=== PATIENT | male | born 1990 | race Two or more races ===

== ENCOUNTER 2018-06-02 21:49 | Emergency (ER) | payer SELFPAY ==
[~2018-06-02] VITALS: Ht 175.3 cm; Wt 81.6 kg
[2018-06-02] MEDS ORDERED: NKM (22:12)
[2018-06-02 22:30] VITALS: BP 136/89
[2018-06-02] MEDS ORDERED: Norco 5mg/325mg tab PO ONE (22:30)
--- NOTE | 2018-06-02 22:30 | NUR ---
ED Nurse Note: Patient walk in with father c/o right elbow deformity for 1x hour. Patient states he fell while playing basketball. Patient reports 6/10 pain. Patient AOx4, VSS, ambulatory with steady gait, no s/s of acute distress noted at this time. Patient seen by ERMD at bedside.
--- NOTE | 2018-06-02 22:55 | Diagnostic Imaging Report ---
EXAM: XR Right Elbow Complete, 3 or More Views CLINICAL HISTORY: PAIN TECHNIQUE: Frontal, lateral and oblique views of the right elbow. COMPARISON: No relevant prior studies available. FINDINGS: Bones/joints: Posterior elbow dislocation. Coronoid process and radial head fractures. Soft tissues: Unremarkable. IMPRESSION: 1. Posterior elbow dislocation. 2. Coronoid process and radial head fractures.
[2018-06-02] MEDS ORDERED: Lidocaine 1% Plain 30 ml INJ ONE (23:15)
--- NOTE | 2018-06-03 00:30 | NUR ---
ED Nurse Note: patients arm put in a splint and a sling.
[2018-06-03] MEDS ORDERED: NORCO 5-325 TA1 EACH ORAL (00:41)
[2018-06-03] MEDS ORDERED: IBUPROFEN600 MG ORAL (00:41)
--- NOTE | 2018-06-03 00:55 | Diagnostic Imaging Report ---
EXAM: XR Right Elbow Complete, 3 or More Views CLINICAL HISTORY: PAIN TECHNIQUE: Frontal, lateral and oblique views of the right elbow. COMPARISON: 06/03/2018 FINDINGS: Bones/joints: Successful interval reduction of previously seen elbow dislocation. Coronoid process and radial head fractures. Soft tissues: Unremarkable. IMPRESSION: Successful interval reduction of previously seen elbow dislocation.
[2018-06-03 01:00] VITALS: BP 136/89
--- NOTE | 2018-06-03 01:00 | NUR ---
ED Nurse Note: Patient cleared for discharge by ERMMart. Patient AOx4, VSS, ambulatory with steady gait, no s/s of acute distress noted at this time. patient provided with discharge instructions and medication prescriptions. patient verbalized understanding. Patient ID band removed. patient took all personal belongings with him. Patient has father at bedside to take him home. patient instructed to follow up with PCP in 3x days.
--- NOTE | 2018-06-03 01:57 | Emergency Room Report ---
History of Present Illness General Chief Complaint: Upper Extremity Injury Source: Patient Present Illness HPI 27-year-old male presents ED for evaluation. Patient complaining of right elbow pain and swelling. States that he was playing basketball tonight and was hit during the game. Believes his elbow is dislocated. Pain is throbbing, 10 out of 10, nonradiating. Unable to flex or extend his elbow. Denies any other injuries. No other aggravating relieving factors. Denies any other associated symptoms Allergies: Coded Allergies: No Known Allergies (Unverified , 06/02/18) Patient History Past Medical History: none Past Surgical History: none Pertinent Family History: none Social History: Denies: smoking, alcohol use, drug use Immunizations: UTD Reviewed Nursing Documentation: PMH: Agreed; PSxH: Agreed Nursing Documentation-PMH Past Medical History: No Stated History Review of Systems All Other Systems: negative except mentioned in HPI Physical Exam Vital Signs Date Time Temp Pulse Resp B/P (MAP) Pulse Ox O2 Delivery O2 Flow Rate FiO2 06/02/18 22:08 98.8 88 16 136/89 96 Room Air Sp02 EP Interpretation: reviewed, normal General Appearance: alert, GCS 15, non-toxic, mild distress Head: normocephalic Eyes: bilateral eye normal inspection, bilateral eye PERRL ENT: normal ENT inspection Neck: normal inspection Respiratory: normal inspection Cardiovascular #1: normal inspection Gastrointestinal: normal inspection Rectal: deferred Genitourinary: no CVA tenderness Musculoskeletal: decreased range of motion, tender - R elbow Neurologic: alert, oriented x3, responsive, motor strength/tone normal, sensory intact, speech normal Psychiatric: judgement/insight normal, memory normal, mood/affect normal, no suicidal/homicidal ideation Skin: normal inspection Lymphatic: normal inspection Procedures Splinting Splinting : Consent: Verbal Hand-Made Type: plaster Splint: posterior long - + sugartong Pre-Proc Neuro Vasc Exam: normal Post-Proc Neuro Vasc Exam: normal Patient Tolerated: Well Complications: None Joint Reduction Joint Reduction : Consent: Verbal Joint Reduction Site: other - R elbow Procedural Sedation: No Reduction Attempts: One Pre-Procedure NV Exam: Yes Post-Procedure NV Exam: Yes Post Joint Reduction Film: joint reduced Patient Tolerated: Well Complications: None Medical Decision Making Diagnostic Impression: Primary Impression: Elbow fracture Qualified Codes: S42.401A - Unspecified fracture of lower end of right humerus , initial encounter for closed fracture Additional Impression: Elbow dislocation Qualified Codes: S53.104A - Unspecified dislocation of right ulnohumeral joint , initial encounter ER Course Hospital Course 27-year-old male presents to ED complaining of R elbow pain Differential diagnoses include: Fracture, dislocation, sprain, contusion Clinical course Patient placed on stretcher. After initial history and physical I ordered pain medications and x-rays of right elbow Right elbow x-ray shows posterior dislocation, coronoid and radial head fracture Patient declined procedural sedation. Joint injected with lidocaine. Elbow reduced without complication. Placed in a posterior long splint with sugar tong splint. Placed in shoulder sling. Repeat elbow x-ray shows adequate reduction. Discussed findings with patient. Patient will need to follow-up with orthopedics as outpatient in 7-10 days. We'll provide orthopedic referral information Diagnosis - elbow fracture, elbow dislocation Stable and discharged to home with prescription for Motrin, [place]. Followup with Ortho. Return to ED if symptoms recur or worsen Other X-Ray Diagnostic Results Other X-Ray Diagnostic Results : X-Ray ordered: R elbow # of Views/Limited Vs Complete: 3 View Indication: Pain EP Interpretation: Yes Interpretation: other - coronoid process, radial head fx Impression: Other - fracture/dislocation Electronically Signed by: Electronically signed by Guero Gonzalez MD Last Vital Signs Date Time Temp Pulse Resp B/P (MAP) Pulse Ox O2 Delivery O2 Flow Rate FiO2 06/02/18 23:14 98.8 06/02/18 22:08 88 16 136/89 96 Room Air Status: improved Disposition: HOME, SELF-CARE Condition: Stable Scripts Hydrocodone Bit/Acetaminophen 5-325* (NORCO 5-325*) 1 Each Tablet 1 TAB ORAL Q6H PRN for For Pain, #10 TAB 0 Refills Prov: Guero Gonzalez MD 06/03/18 Ibuprofen* (MOTRIN*) 600 Mg Tablet 600 MG ORAL Q8H PRN for For Pain, #30 TAB 0 Refills Prov: Guero Gonzalez MD 06/03/18 Referrals: NOT CHOSEN IPA/,REFERRING (PCP) [facility] Patient Instructions: Elbow Dislocation, [id number] Additional Instructions: Orthopedic urgent care: [address] [place] [address] email: Guero Gonzalez MD Jun 03, 2018 01:57
== END 2018-06-03 01:00 | disposition home or self-care (01) ==
LOC: EMR 23:14
DX: S52.121A Displaced fracture of head of right radius, initial encounter for closed fracture (principal); W51.XXXA Accidental striking against or bumped into by another person, initial encounter; Y93.67 Activity, basketball; Y92.9 Unspecified place or not applicable
CPT/HCPCS: 24655; 29105; 73070; 73080; 99283; J2001